=== PATIENT | male | born 1995 | race Caucasian/White ===

== ENCOUNTER 2018-11-15 14:53 | Emergency (ER) | payer OTHER | END 2018-11-15 15:28 | disposition home or self-care (01) | LOC: M ED 14:53 | DX: K12.2 Cellulitis and abscess of mouth (principal) | CPT/HCPCS: 87880 ==

== ENCOUNTER 2019-06-01 03:02 | Emergency (ER) | payer OTHER ==
[~2019-06-01] VITALS: Ht 172.7 cm; Wt 63.4 kg
[~2019-06-01 03:02] MED LIST: PRED20TA PO
[2019-06-01 03:18] VITALS: BP 117/70
[2019-06-01 03:52] LABS: HEMATOCRIT 43.3 % (42.0-52.0); HEMOGLOBIN 15.1 g/dl (13.5-17.5); MEAN CORPUSCULAR HEMOGLOBIN 29.9 pg (27.0-33.0); MEAN CORPUSCULAR HGB CONC 34.9 g/dl (32.0-36.5); MEAN CORPUSCULAR VOLUME 85.7 fl (80.0-96.0); PLATELET COUNT, AUTOMATED 210 10^3/uL (150-450); RED BLOOD COUNT 5.05 10^6/uL (4.30-6.10); WHITE BLOOD COUNT 7.1 10^3/uL (4.0-10.0)
[2019-06-01 04:27] LABS: ACETAMINOPHEN LEVEL < 2.0 UG/ML (10.0-30.0); ALBUMIN 4.1 GM/DL (3.2-5.2); ALT/SGPT 27 U/L (12-78); BILIRUBIN,DIRECT 0.1 MG/DL (0.0-0.2); BILIRUBIN,TOTAL 0.5 MG/DL (0.2-1.0); BLOOD UREA NITROGEN 10 MG/DL (7-18); CALCIUM LEVEL 8.5 MG/DL (8.5-10.1); CARBON DIOXIDE LEVEL 31 MEQ/L (21-32); CHLORIDE LEVEL 107 MEQ/L (98-107); CREATININE FOR GFR 0.94 MG/DL (0.70-1.30); ETHYL ALCOHOL (ETHANOL) 0.123 % (0.000-0.010); GLOMERULAR FILTRATION RATE > 60.0 (>60); GLUCOSE, FASTING 110 MG/DL (70-100); POTASSIUM SERUM 3.6 MEQ/L (3.5-5.1); SALICYLATE LEVEL < 1.7 MG/DL (5.0-30.0); SODIUM LEVEL 139 MEQ/L (136-145)
--- NOTE | 2019-06-01 07:31 | ECGEPIP ---
[facility] - ED Test Date: 2019-06-01 Pat Name: JAYRO GUILLEN Department: Room: - Gender: Male [employer]: : 1995 Requested By: RUPESH ALTMAN Order Number: [id number] Reading MD: Juanito Rose Measurements Intervals [place] Rate: 67 P: 67 IA: 192 QRS: 82 QRSD: 108 T: 53 QT: 418 QTc: 442 Interpretive Statements SINUS RHYTHM WITH OCCASIONAL VENTRICULAR PREMATURE COMPLEXES INCOMPLETE RIGHT BUNDLE BRANCH BLOCK NO PRIORS FOR COMPARISON Electronically Signed on 06-01-2019 7:31:11 EDT by Juanito Rose
== END 2019-06-01 04:10 | disposition home or self-care (01) ==
LOC: M ED 03:02
DX: F10.129 Alcohol abuse with intoxication, unspecified (principal); Y90.0 Blood alcohol level of less than 20 mg/100 ml
CPT/HCPCS: 36415; 80048; 80076; 84443; 85027; 93005; 99284; G0480

== ENCOUNTER 2019-10-13 14:46 | Emergency (ER) | payer OTHER ==
[~2019-10-13] VITALS: Ht 172.7 cm; Wt 61.4 kg
--- NOTE | 2019-10-13 16:20 | REP ---
CT lumbar spine: 10/13/2019. Indication: Lumbar pain following injury. Comparison: None. Technique: Unenhanced axial CT images of the lumbar spine were obtained with coronal and sagittal reconstructions provided. Findings: There is no acute fracture, subluxation or dislocation. Vertebral body alignment is anatomic. Disc space height is maintained. There is no evidence of disc herniation on this study. No significant soft tissue abnormalities are detected. Impression: No acute osseous injury of the lumbar spine. Electronically Signed by Ezequiel Burgess DO 10/13/2019 04:12 P
[2019-10-13] MEDS ORDERED: PRED10TA2 PO (16:52)
[2019-10-13] MEDS ORDERED: ROBA750T4 PO (16:52)
[2019-10-13 17:00] VITALS: BP 105/66
[2019-10-13] MEDS ORDERED: METHOCARBAMOL 750 MG TAB PO ONE (17:00)
[2019-10-13] MEDS ORDERED: predniSONE 20 MG TAB PO ONE (17:00)
== END 2019-10-13 18:05 | disposition home or self-care (01) ==
LOC: EDBD 14:46 → M ED 14:46
DX: S39.012A Strain of muscle, fascia and tendon of lower back, initial encounter (principal); R20.0 Anesthesia of skin; X50.0XXA Overexertion from strenuous movement or load, initial encounter; Y92.138 Other place on military base as the place of occurrence of the external cause; Y93.A2 Activity, calisthenics; Z79.899 Other long term (current) drug therapy; Z79.52 Long term (current) use of systemic steroids

== ENCOUNTER 2019-11-29 16:26 | Emergency (ER) | payer OTHER ==
[~2019-11-29] VITALS: Ht 175.3 cm; Wt 65.5 kg
[~2019-11-29 16:26] MED LIST changes: +PRED10TA2 PO; +ROBA750T4 PO
[2019-11-29 18:29] LABS: HEMATOCRIT 48.7 % (42.0-52.0); HEMOGLOBIN 16.3 g/dl (13.5-17.5); MEAN CORPUSCULAR HGB CONC 33.5 g/dl (32.0-36.5); MEAN CORPUSCULAR VOLUME 86.5 fl (80.0-96.0); PLATELET COUNT, AUTOMATED 251 10^3/uL (150-450); RED BLOOD COUNT 5.63 10^6/uL (4.30-6.10); WHITE BLOOD COUNT 12.3 10^3/uL (4.0-10.0)
[2019-11-29 18:52] LABS: AMPHETAMINES LEVEL URINE NEGATIVE (NEGATIVE); BARBITURATES URINE NEGATIVE (NEGATIVE); BENZODIAZEPINES URINE NEGATIVE (NEGATIVE); CANNABINOIDS URINE NEGATIVE (NEGATIVE); COCAINE METABOLITE URINE NEGATIVE (NEGATIVE); METHADONE URINE NEGATIVE (NEGATIVE); OPIATES URINE NEGATIVE (NEGATIVE); PHENCYCLIDINE URINE NEGATIVE (NEGATIVE)
[2019-11-29 19:15] LABS: ACETAMINOPHEN LEVEL < 2.0 UG/ML (10.0-30.0); ALBUMIN 4.6 GM/DL (3.2-5.2); ALT/SGPT 23 U/L (12-78); BILIRUBIN,DIRECT 0.3 MG/DL (0.0-0.2); BILIRUBIN,TOTAL 1.2 MG/DL (0.2-1.0); BLOOD UREA NITROGEN 13 MG/DL (7-18); CALCIUM LEVEL 9.4 MG/DL (8.5-10.1); CARBON DIOXIDE LEVEL 31 MEQ/L (21-32); CHLORIDE LEVEL 102 MEQ/L (98-107); CREATININE FOR GFR 1.04 MG/DL (0.70-1.30); ETHYL ALCOHOL (ETHANOL) < 0.003 % (0.000-0.010); GLOMERULAR FILTRATION RATE > 60.0 (>60); GLUCOSE, FASTING 84 MG/DL (70-100); SALICYLATE LEVEL < 1.7 MG/DL (5.0-30.0); SODIUM LEVEL 141 MEQ/L (136-145); TOTAL PROTEIN 7.8 GM/DL (6.4-8.2)
[2019-11-29 20:38] VITALS: BP 115/60
== END 2019-11-29 20:41 | disposition home or self-care (01) ==
LOC: M ED 16:26
DX: F32.9 Major depressive disorder, single episode, unspecified (principal)
CPT/HCPCS: 36415; 80048; 80076; 80307; 84443; 85027; 99284; G0480

== ENCOUNTER 2020-01-15 13:22 | Emergency (ER) | payer OTHER ==
[~2020-01-15] VITALS: Ht 175.3 cm; Wt 59.1 kg
[2020-01-15 14:12] LABS: MEAN CORPUSCULAR HEMOGLOBIN 29.5 pg (27.0-33.0); MEAN CORPUSCULAR VOLUME 86.6 fl (80.0-96.0); PLATELET COUNT, AUTOMATED 285 10^3/uL (150-450); RED BLOOD COUNT 5.43 10^6/uL (4.30-6.10); WHITE BLOOD COUNT 7.4 10^3/uL (4.0-10.0)
[2020-01-15 14:34] LABS: AMPHETAMINES LEVEL URINE NEGATIVE (NEGATIVE); BARBITURATES URINE NEGATIVE (NEGATIVE); BENZODIAZEPINES URINE NEGATIVE (NEGATIVE); CANNABINOIDS URINE NEGATIVE (NEGATIVE); COCAINE METABOLITE URINE NEGATIVE (NEGATIVE); METHADONE URINE NEGATIVE (NEGATIVE); OPIATES URINE NEGATIVE (NEGATIVE); PHENCYCLIDINE URINE NEGATIVE (NEGATIVE)
[2020-01-15 14:41] LABS: ACETAMINOPHEN LEVEL < 2.0 UG/ML (10.0-30.0); ALBUMIN 4.6 GM/DL (3.2-5.2); ALT/SGPT 36 U/L (12-78); BILIRUBIN,DIRECT 0.3 MG/DL (0.0-0.2); BILIRUBIN,TOTAL 1.1 MG/DL (0.2-1.0); BLOOD UREA NITROGEN 13 MG/DL (7-18); CARBON DIOXIDE LEVEL 33 MEQ/L (21-32); CHLORIDE LEVEL 106 MEQ/L (98-107); CREATININE FOR GFR 1.04 MG/DL (0.70-1.30); ETHYL ALCOHOL (ETHANOL) < 0.003 % (0.000-0.010); GLOMERULAR FILTRATION RATE > 60.0 (>60); GLUCOSE, FASTING 111 MG/DL (70-100); POTASSIUM SERUM 4.2 MEQ/L (3.5-5.1); SALICYLATE LEVEL < 1.7 MG/DL (5.0-30.0); SODIUM LEVEL 141 MEQ/L (136-145); THYROID STIMULATING HORMONE 0.845 uIU/ML (0.358-3.740); TOTAL PROTEIN 7.6 GM/DL (6.4-8.2)
[2020-01-15 16:33] VITALS: BP 120/56
== END 2020-01-15 16:35 | disposition home or self-care (01) ==
LOC: M ED 13:22
DX: F43.20 Adjustment disorder, unspecified (principal)
CPT/HCPCS: 36415; 80048; 80076; 80307; 84443; 85027; 99284; G0480

== ENCOUNTER 2020-03-21 13:39 | Emergency (ER) | payer OTHER ==
[~2020-03-21] VITALS: Ht 175.3 cm; Wt 63.4 kg
[2020-03-21 13:39] VITALS: BP 117/64
[2020-03-21] MEDS ORDERED: AUGM875T28 PO (14:26)
[2020-03-21] MEDS ORDERED: IBUP-1022 PO (14:26)
== END 2020-03-21 14:45 | disposition home or self-care (01) ==
LOC: M ED 13:39
DX: K01.1 Impacted teeth (principal)

== ENCOUNTER 2021-05-21 09:39 | Emergency (ER) | payer OTHER ==
[~2021-05-21] VITALS: Ht 175.3 cm; Wt 66.0 kg
[~2021-05-21 09:39] MED LIST changes: +AUGM875T28 PO; +IBUP-1022 PO
[2021-05-21] MEDS ORDERED: COLA100C5 PO (10:16)
[2021-05-21] MEDS ORDERED: ANUS25SU PR (10:16)
[2021-05-21 11:51] VITALS: BP 125/72
== END 2021-05-21 11:52 | disposition home or self-care (01) ==
LOC: M ED 09:39
DX: K64.8 Other hemorrhoids (principal)